=== PATIENT | male | born 1950 | race Caucasian/White ===

== ENCOUNTER 2019-05-09 16:09 | Emergency (ER) | payer OTHER, SELFPAY ==
--- NOTE | 2019-05-09 16:35 | PC.NURSE ---
DURING TRIAGE OF PATIENT, PT EXHIBITED EXTREME SWELLING, REDNESS AND PAIN TO LT LOWER LEG. PT WAS STARTED ON A NEW ANTIFUNGAL PO MED X 4 DAYS AGO. PT VERY CONCERNED REGARDING POSSIBLE BLOOD CLOT AND WANTED TO HAVE U/S DONE. INFORMED PT WE DO NOT DO U/S HERE. PT DECIDED WITH SPOUSE TO GO ON TO THE ER.
== END 2019-05-09 16:35 | disposition left against medical advice (07) ==
PROVIDERS: Emergency Provider Registered Nurse
DX: Z53.21 Procedure and treatment not carried out due to patient leaving prior to being seen by health care provider (principal)
CPT/HCPCS: 99199